=== PATIENT | female | born 1975 | race African-American/Black ===

== ENCOUNTER 2020-11-01 11:14 | Outpatient (NON) | payer OTHER, SELFPAY ==
[2020-11-02 00:20] LABS: SARS-CoV-2 RNA PCR Negative
== END 2020-11-01 11:15 ==
LOC: ANHCOVIDDT 11:15
PROVIDERS: PCP Internal Medicine; Visit Provider Clinical Nurse Specialist
DX: Z20.828 Contact with and (suspected) exposure to other viral communicable diseases (principal); R05 Cough
CPT/HCPCS: 87635; C9803; U0003

== ENCOUNTER → 2021-02-06 12:00 | Outpatient (CLI) | payer OTHER, SELFPAY ==
--- NOTE | ~2021-02-06 | MM_ITS ---
EXAMINATION: MM screening vidhya BI w mark HISTORY: Screening mammogram TECHNIQUE: Craniocaudal and mediolateral oblique 3-D tomosynthesis images were obtained and synthetic 2-D images were generated. CAD analysis was submitted and interpreted. COMPARISON: 01/15/2017, 12/08/2013 bilateral digital screening mammogram examinations BREAST PARENCHYMAL COMPOSITION: There are scattered areas of fibroglandular density. FINDINGS: There is no evidence of suspicious mass, calcification, or architectural distortion to sugg est malignancy in either breast. There has been no suspicious interval change. IMPRESSION: 1. No mammographic evidence of malignancy. 2. Recommend routine screening mammography in one year. BI-RADS Category 1: Negative Reviewed, dictated and finalized at location A. ON WORKER
== END ==
PROVIDERS: PCP Internal Medicine; Visit Provider Obstetrics & Gynecology Gynecology
DX: Z12.31 Encounter for screening mammogram for malignant neoplasm of breast (principal)
CPT/HCPCS: 77063; 77067

== ENCOUNTER 2021-02-10 12:34 | Outpatient (CLI) | payer OTHER, SELFPAY ==
[2021-02-10 13:57] LABS: HIV 1/2 Ab P24 Ag Result Negative (Negative)
[2021-02-10 14:45] LABS: Hepatitis B Surface Antigen Negative (Negative)
[2021-02-10 15:02] LABS: Hepatitis C Virus Antibody Negative (Negative)
== END 2021-02-10 12:35 | disposition home or self-care (01) ==
LOC: ANHLAB 12:36
PROVIDERS: PCP Internal Medicine; Visit Provider Plastic Surgery
DX: Z77.21 Contact with and (suspected) exposure to potentially hazardous body fluids (principal)
CPT/HCPCS: 36415; 86703; 86803; 87340; G0432

== ENCOUNTER → 2021-03-03 08:19 | Outpatient (CLI) | payer OTHER, SELFPAY ==
[2021-03-03 19:28] LABS: SARS-CoV-2 RNA PCR Negative
== END ==
PROVIDERS: PCP Internal Medicine; Visit Provider Clinical Nurse Specialist
DX: J01.00 Acute maxillary sinusitis, unspecified (principal); Z20.822 Contact with and (suspected) exposure to COVID-19
CPT/HCPCS: C9803; U0003; U0005

== ENCOUNTER 2021-03-26 15:44 | Outpatient (CLI) | payer OTHER, SELFPAY ==
--- NOTE | ~2021-03-26 | XR_ITS ---
EXAMINATION: XR finger 1st RT min 2V DATE: 03/26/2021 16:09 INDICATION: Osteoarthritis TECHNIQUE: Dorsal palmar, lateral and 2 oblique views of the right first digit were obtained COMPARISON: None FINDINGS: Alignment is normal. No fracture. Minimal osteoarthritis with slight nonuniform joint space are at th e first metacarpophalangeal joint and with tiny marginal osteophytes and relatively preserved joint s pace at the first interphalangeal joint. Soft tissues are unremarkable. IMPRESSION: 1. Minimal osteoarthritis at the right first metacarpophalangeal and first interphalangeal joints. Reviewed, dictated and finalized at location A. IMPRESSION: 1. Minimal osteoarthritis at the right first metacarpophalangeal and first inte rphalangeal joints.
== END 2021-03-26 15:45 | disposition home or self-care (01) ==
PROVIDERS: PCP Internal Medicine; Visit Provider Plastic Surgery
DX: M19.041 Primary osteoarthritis, right hand (principal)
CPT/HCPCS: 73140

== ENCOUNTER 2021-03-27 13:29 | Outpatient (CLI) | payer OTHER, SELFPAY | END 2021-03-27 13:30 | disposition home or self-care (01) | LOC: ANHCOVIDVC 13:30 | PROVIDERS: PCP Internal Medicine | DX: Z23 Encounter for immunization (principal) | CPT/HCPCS: 0001A; 91300 ==

== ENCOUNTER 2021-04-17 13:00 | Outpatient (CLI) | payer OTHER, SELFPAY | END 2021-04-17 13:01 | disposition home or self-care (01) | LOC: ANHCOVIDVC 13:01 | PROVIDERS: PCP Internal Medicine | DX: Z23 Encounter for immunization (principal) | CPT/HCPCS: 0002A; 91300 ==

== ENCOUNTER 2021-05-28 13:22 | Emergency (ER) | payer OTHER, SELFPAY ==
[2021-05-28] VITALS (12 sets, daily range): BP systolic 124–183; BP diastolic 77–133; PULSE 78–97; RESP 16–18; TEMP 37.1; O2SAT 91–100
--- NOTE | ~2021-05-28 | XR_ITS ---
EXAMINATION: XR chest 2V DATE: 05/28/2021 13:52 INDICATION: Right chest pain. TECHNIQUE: Frontal and lateral views of the chest were obtained. COMPARISON: None. FINDINGS: There is mild atelectasis in left lower lung zone. No pleural effusion or pneumothorax. The heart size is normal. Surgical clips in the right upper quadrant are likely from cholecystectomy. IMPRESSION: 1. Mild atelectasis in left lower lung zone. Reviewed, dictated and finalized at location A.
--- NOTE | 2021-05-28 13:24 | ECG_ITS ---
Measurements Intervals Hodges Rate: 96 P: 61 AR: 137 QRS: -33 QRSD: 112 T: 21 QT: 333 QTc: 421 Interpretive Statements SINUS RHYTHM LEFT AXIS DEVIATION INCOMPLETE RIGHT BUNDLE BRANCH BLOCK VOLTAGE CRITERIA FOR LVH POOR R WAVE PROGRESSION, ANTERIOR LEADS MINIMAL Q WAVES- HIGH LATERAL LEADS BORDERLINE T WAVE ABNORMALITY- ANT/INF LEADS BORDERLINE ECG Electronically Signed On 05-28-2021 13:47:32 CDT by Denzel Renee D.O.
[2021-05-28 14:01] LABS: Basophils Percent Auto 0.1 % (0.2-1.2); Hematocrit 36.8 % (37.0-47.0); Hemoglobin 12.2 g/dL (12.0-15.0); Immature Granulocyte Percent A 0.7 % (0-0.5); Lymphocytes Absolute Auto 1.19 K/mm3 (0.9-3.2); Lymphocytes Percent Auto 8.7 % (18.3-44.2); Mean Corpuscular HGB Conc 33.2 g/dl (32-36); Mean Corpuscular Volume 90.4 fl (80-100); Mean Platelet Volume 10.1 fl (7.4-10.4); Monocytes Absolute Auto 0.3 K/mm3 (0.1-0.6); Monocytes Percent Auto 2.1 % (2.6-8.5); Neutrophils Percent Auto 88.4 % (45.5-73.1); Platelet Count Result 313 k/mm3 (150-375); Red Blood Count 4.07 M/mm3 (4.2-5.4); Red Cell Distribution Width 12.6 % (11.5-14.5); White Blood Count 13.6 K/mm3 (4.5-10.0)
[2021-05-28 14:11] LABS: Anion Gap 10 mmol/L (8-16); Blood Urea Nitrogen 10 mg/dL (7-17); Calcium 9.5 mg/dL (8.4-10.2); Carbon Dioxide 18 mmol/L (22-30); Chloride 110 mmol/L (98-107); Estimated CRCL calculation 116 ml/min; Estimated Glomerular Filt Rate > 60; Glucose 124 mg/dL (65-105); Potassium 3.9 mmol/L (3.4-5.0); Sodium 138 mmol/L (137-145)
[2021-05-28 14:15] LABS: INR 0.9; Partial Thromboplastin Time 27.4 SECONDS (22.3-36.8); Prothrombin Time 12.6 Seconds (11.1-14.7)
[2021-05-28 14:23] LABS: Troponin I < 0.012 ng/mL (0.000-0.034)
[2021-05-28 15:12] LABS: Alanine Aminotransferase 20 U/L (4-35); Albumin Level 4.2 g/dL (3.5-5.1); Alkaline Phosphatase 97 U/L (38-126); Aspartate Amino Transferase 31 U/L (14-36); Bilirubin,Total 0.2 mg/dL (0.2-1.3); Lipase 116 U/L (23-300)
[2021-05-28 15:16] LABS: D Dimer 0.45 ug/mL (<0.48)
[2021-05-28] MEDS: KETOROLAC 30 MG/ML VIAL (*BKC) IV PUSH (15:35)
--- NOTE | 2021-05-28 15:41 | ED.CHESTPAIN ---
HPI - Chest Pain General Chief Complaint: Chest Pain Stated Complaint: CP Time Seen by Provider: 05/28/21 14:40 Source: RN notes reviewed History of Present Illness HPI narrative: Patient presents emergency department from home for right-sided chest pain. Patient states pain began last night pain is located on the right side of the chest and does not radiate described as sharp and stabbing. Patient states pain is worse when she bends over she denies any fevers or chills abdominal pain nausea vomiting shortness of breath or any other symptoms states she took Tylenol this morning for pain with minimal relief states she does have a history of GERD and has been taking her omeprazole Related Data Home Medications Medication Instructions Recorded Confirmed dupilumab 200 mg/1.14 mL 200 mg SUB-Q .every 2 weeks ml 11/02/19 03/03/21 subcutaneous syringe etonogestrel 0.12 mg-ethinyl 1 vag ring VAGINAL ONCE 11/02/19 03/03/21 estradiol 0.015 mg/24 hr vaginal ring montelukast 10 mg tablet 10 mg PO DAILY 11/02/19 03/03/21 albuterol sulfate 90 mcg/actuation 2 puff INHALATION Q4-6H PRN g 11/01/20 03/03/21 aerosol inhaler fluticasone furoate 200 1 inh INHALATION DAILY 11/01/20 03/03/21 mcg-vilanterol 25 mcg/dose inhalation powder metformin 500 mg tablet 500 mg PO BID tablet 11/01/20 03/03/21 omeprazole 40 mg capsule,delayed 40 mg PO DAILY 01/23/21 03/03/21 release Allergies Allergy/AdvReac Type Severity Reaction Status Date / Time No Known Allergies Allergy Unverified 10/24/18 08:19 Review of Systems Review of Systems: Narrative: Gen.: Denies fevers or chills ENT: Denies congestion Respiratory: Denies shortness of breath or cough CV: See HPI GI: Denies abdominal pain nausea, emesis or diarrhea Musculoskeletal: Denies back pain or muscle pain Neuro: Denies numbness, tingling, weakness or focal weakness Skin: Denies rash Except as documented, all other systems reviewed and negative PMFSH Past Medical History Medical History Allergies Arthritis Asthma Cervical radiculopathy Lumbar radiculopathy PCOS (polycystic ovarian syndrome) Pseudotumor both eyes Renal stone Surgical History Surgical History (Updated 11/02/19 @ 07:51 by Stefania Longoria CMA) H/O section Hx of cholecystectomy Family History Family History (Updated 11/02/19 @ 11:26 by Stefania Longoria CMA) Father Asthma Mother Heart disease Cerebrovascular accident Diabetes mellitus Bleeding disorder Social History Social History Smoking status: Never smoker Alcohol intake: current Exam Narrative: Exam Narrative: APPEARANCE: No acute distress, nontoxic, resting in bed EYES: EOMI HEENT: Normocephalic, atraumatic, OMM RESPIRATORY: No respiratory distress Clear to auscultation bilaterally with no rhonchi wheezing or rales. CARDIOVASCULAR: Regular rate and rhythm without murmurs rubs or gallops. Chest: Tender palpation over the right anterior chest wall no swelling or ecchymosis pain increased with slight motion and deep inspiration ABDOMINAL: Soft, nontender, nondistended, no rebound or guarding MUSCULOSKELETAl: Moves all extremities. No clubbing, cyanosis or edema. NEURO: Awake and alert. Following commands, speech normal, no focal deficits SKIN:: Warm, dry. No rashes lesions or abrasions PSYCHIATRIC: Normal affect/mood, Course Course Emergency Course: Patient states pain is improved at this time Discussed with patient results of workup and diagnosis. Discussed need for follow-up with primary care, proper use of medication, and reasons to return to the emergency department. Patient understands and agrees to current treatment plan Vital Signs Vital signs: Vital Signs Temperature 98.7 F 05/28/21 13:26 Pulse Rate 85 05/28/21 13:26 Respiratory Rate 16 05/28/21 13:26 Blood Pressure 145/79 H /
[2021-05-28 16:59] LABS: Troponin I < 0.012 ng/mL (0.000-0.034)
== END 2021-05-28 17:37 | disposition home or self-care (01) ==
PROVIDERS: Emergency Provider Emergency Medicine; PCP Internal Medicine
DX: R07.89 Other chest pain (principal); K21.9 Gastro-esophageal reflux disease without esophagitis; E28.2 Polycystic ovarian syndrome; M19.90 Unspecified osteoarthritis, unspecified site; J45.909 Unspecified asthma, uncomplicated; Z87.442 Personal history of urinary calculi; Z79.84 Long term (current) use of oral hypoglycemic drugs; R91.8 Other nonspecific abnormal finding of lung field; I45.10 Unspecified right bundle-branch block; R94.31 Abnormal electrocardiogram [ECG] [EKG]
CPT/HCPCS: 36415; 71046; 80048; 80076; 81025; 83690; 84484; 85025; 85380; 85610; 85730; 93005; 96374; 99284; A9270; J1885

== ENCOUNTER → 2021-06-24 06:40 | Outpatient (CLI) | payer OTHER, SELFPAY ==
[2021-06-24 20:36] LABS: SARS-CoV-2 RNA PCR Negative
== END ==
PROVIDERS: PCP Internal Medicine; Visit Provider Clinical Nurse Specialist
DX: R68.89 Other general symptoms and signs (principal); Z20.822 Contact with and (suspected) exposure to COVID-19
CPT/HCPCS: C9803; U0003; U0005

== ENCOUNTER → 2021-07-24 11:35 | Outpatient (CLI) | payer OTHER, SELFPAY ==
--- NOTE | ~2021-07-24 | US_ITS ---
US pelvic complete w TV DATE: 07/24/2021 12:04 INDICATION: Pelvic pain TECHNIQUE: Real-time imaging via transabdominal and transvaginal approaches COMPARISON: 12/08/2013 pelvic ultrasound FINDINGS: The uterus measures 9.6 cm height, 4.7 cm anteroposterior and 5.4 cm transverse dimension. There is inhomogeneous echotexture with suggestion of uterine fibroids measuring up to 1.1 and 2.7 cm . Nabothian cysts of the uterine cervix. Right ovary 2.3 x 1.1 x 1.6 cm, with vascular flow. Left ovary 2.1 x 1.6 x 2.3 cm, with vascular flow. No abnormal free fluid collection is detected. IMPRESSION: Inhomogeneous echotexture suggesting uterine fibroids Reviewed, dictated and finalized at Location A. Reviewed, dictated and finalized at location A.
== END ==
PROVIDERS: PCP Clinical Nurse Specialist; Visit Provider Nurse Practitioner
DX: R10.2 Pelvic and perineal pain (principal)
CPT/HCPCS: 76830; 76856

== ENCOUNTER 2023-11-11 17:23 | Emergency (ER) | payer OTHER, SELFPAY ==
--- NOTE | ~2023-11-11 | CT_ITS ---
EXAMINATION: CT abdomen pelvis w con DATE: 11/11/2023 20:32 INDICATION: Right upper quadrant abdominal pain TECHNIQUE: Computed tomography (CT) of the abdomen and pelvis was performed with 100 mL Omnipaque-350 intravenous contrast. Automated exposure control and iterative reconstruction technique were employe d. The dose-length product was 1337.41 mGy-cm. COMPARISON: None FINDINGS: Discoid atelectasis in the lingula. Heart size is normal. No pericardial or pleural effusion. Focal h epatic steatosis at the ligamentum teres. Cholecystectomy clips the gallbladder fossa. Liver, spleen, pancreas, bilateral adrenal glands and right kidney are normal. 3 mm nonobstructing stone at a lower pole calyx of the left kidney. Normal appendix. Bowels are unremarkable with no wall thickening or o bstruction. Dystrophic calcification at the fundus of the anteverted uterus. 1.7 cm identified fibroi d at the left side of the uterine fundus. Nabothian cysts at the cervix. Decompressed bladder and lat eral adnexa are unremarkable. No free intraperitoneal gas or fluid. No pathologically enlarged abdomi nal or pelvic lymphadenopathy. Moderate lumbar spondylosis. IMPRESSION: 1. No acute intra-abdominal/pelvic process. 2. Nonobstructing 3 mm left renal stone. 3. Fibroid uterus. Reviewed, dictated and finalized at location A. TRIMMER
[2023-11-11 17:25] VITALS: BP 143/86; PULSE 82; RESP 16; TEMP 36.5; O2SAT 100
[2023-11-11 18:04] LABS: Basophils Percent Auto 0.5 % (0.2-1.2); Eosinophils Absolute Auto 0.2 K/mm3 (0-0.3); Eosinophils Percent Auto 2.3 % (0-4.4); Hematocrit 36.1 % (37.0-47.0); Immature Granulocyte Absolute 0.03 K/mm3 (0.00-0.031); Immature Granulocyte Percent A 0.5 % (0-0.5); Lymphocytes Absolute Auto 2.37 K/mm3 (0.9-3.2); Lymphocytes Percent Auto 36.7 % (18.3-44.2); Mean Corpuscular HGB Conc 33.2 g/dl (32-36); Mean Corpuscular Hemoglobin 30.5 pg (26-34); Mean Corpuscular Volume 91.6 fl (80-100); Monocytes Absolute Auto 0.4 K/mm3 (0.1-0.6); Monocytes Percent Auto 6.5 % (2.6-8.5); Neutrophils Absolute Auto 3.5 K/mm3 (1.3-6.7); Neutrophils Percent Auto 53.5 % (45.5-73.1); Platelet Count Result 311 k/mm3 (150-375); Red Blood Count 3.94 M/mm3 (4.2-5.4); Red Cell Distribution Width 12.1 % (11.5-14.5); White Blood Count 6.5 K/mm3 (4.5-10.0)
[2023-11-11 18:05] LABS: Appearance Urine Clear (Clear); Bacteria Urine None Seen /hpf; Bilirubin Urine Negative (Negative); Blood Urine Trace (Negative); Color Urine Yellow (Yellow); Glucose Urine UA Negative (Negative); Ketones Urine Negative (Negative); Leukocyte Esterase Ur Negative LEU/UL (Negative); Nitrate Urine Negative (Negative); Non Pathogenic Casts 0-2; Protein Urine Negative (Negative); RBC Urine 0-2 /hpf (0-2); Specific Grav Ur 1.028 (1.001-1.035); Squamous Epithelial Cell Urine Occasional /hpf (Few); Urobilinogen Urine 0.2 mg/dL (<2.0); WBC Urine 0-5 /hpf; pH Urine 5.5 (5.0-9.0)
[2023-11-11 18:08] LABS: Add Urine Microscopic? YES
[2023-11-11 18:10] LABS: Alanine Aminotransferase 13 U/L (6-35); Albumin Level 3.8 g/dL (3.5-5.1); Alkaline Phosphatase 77 U/L (38-126); Anion Gap 7 mmol/L (8-16); Aspartate Amino Transferase 20 U/L (14-36); Bilirubin,Total 0.3 mg/dL (0.2-1.3); Blood Urea Nitrogen 13 mg/dL (7-17); Calcium 8.7 mg/dL (8.4-10.2); Carbon Dioxide 24 mmol/L (22-30); Chloride 109 mmol/L (98-107); Estimated CRCL calculation 90 ml/min; Estimated Glomerular Filt Rate > 60; Glucose 107 mg/dL (65-110); Lipase 130 U/L (23-300); Potassium 3.8 mmol/L (3.4-5.0); Sodium 140 mmol/L (137-145)
--- NOTE | 2023-11-11 18:44 | ED.FEMALEGU ---
HPI - Female Genitourinary General Chief complaint: Vaginal Bleeding Stated complaint: Right sd pain with vaginal bleeding Time Seen by Provider: 11/11/23 18:43 History of Present Illness HPI Narrative: Patient is a 47-year-old female with history of fibroids here with vaginal bleeding and abdominal pain. She states that over the last few days she has been having some right lower quadrant abdominal pain which seems to radiate up into her right flank and down into her groin. She notes it is sharp and cramping. She notes normal bowel movements and no urinary symptoms. She did have similar symptoms in the past when she had a urinary tract infection. She does note some subjective fever along with chills at home. She additionally notes over the same period of time she has had some intermittent vaginal spotting. She notes that in the morning it is spotting and seems to increase strength throughout the day. She was moved a couple of pads throughout the day. She does note some small clots. It is dark brown in color. Last menstrual period was about a week ago and typically last 5 days, it was a normal period for her. She has been diagnosed with fibrioids in the past on an US that was performed by her OBGYN outpatient. Related Data Home Medications Medication Instructions Recorded Confirmed dupilumab 200 mg/1.14 mL 200 mg subcut .every 2 weeks 11/02/19 06/23/21 subcutaneous syringe (Dupixent) etonogestrel 0.12 mg-ethinyl 1 vag ring vaginal ONCE 11/02/19 06/23/21 estradiol 0.015 mg/24 hr vaginal ring (NuvaRing) montelukast 10 mg tablet 10 mg PO DAILY 11/02/19 06/23/21 albuterol sulfate 90 mcg/actuation 2 puff inhalation Q4-6H PRN 11/01/20 06/23/21 aerosol inhaler (ProAir HFA) fluticasone furoate 200 1 inh inhalation DAILY 11/01/20 06/23/21 mcg-vilanterol 25 mcg/dose inhalation powder (Breo Ellipta) metformin 500 mg tablet 500 mg PO BID 11/01/20 06/23/21 omeprazole 40 mg capsule,delayed 40 mg PO DAILY 01/23/21 06/23/21 release Allergies Allergy/AdvReac Type Severity Reaction Status Date / Time No Known Allergies Allergy Verified 11/11/23 17:29 Review of Systems Review of Systems: All systems reviewed & are unremarkable except as noted in HPI and below PMFSH Past Medical History Medical History Allergies Arthritis Asthma Cervical radiculopathy Lumbar radiculopathy PCOS (polycystic ovarian syndrome) Pseudotumor both eyes Renal stone Surgical History Surgical History H/O section Hx of cholecystectomy Family History Family History Father Asthma Mother Heart disease Cerebrovascular accident Diabetes mellitus Bleeding disorder Social History Social History Smoking status: Never smoker Alcohol intake: current Alcohol use details: Pt drinks rarely. Exam Narrative: GENERAL: Well-appearing, well-nourished, and in no acute distress. HEAD: Normocephalic, atraumatic. EYES: PERRLA and EOMI. ENT: Nares clear. Mucous membranes moist. NECK: Supple. CHEST: Clear to auscultation. No respiratory distress. HEART: Regular rate and rhythm. Normal peripheral pulses. ABDOMEN: Soft, suprapubic and RLQ tenderness. +CVA tenderness on the right side. EXTREMITIES: Normal range of motion. No edema. SKIN: Warm, dry, no rash. NEURO: No focal deficits. Alert and oriented x3. PSYCH: Normal mood and affect. Course Course Emergency Course: Chart review performed. Patient here with vaginal bleeding and lower abdominal pain. She has some nausea with pain. LMP was 10/31/23. Bedside preg negative. CBC shows stable Hgb at 12.0. Transvaginal US on 07/24/21 shows uterine fibroids. Patient seen evaluated, nontoxic appearing. She is significantly tender in the right lower qu
[2023-11-11 21:04] VITALS: BP 138/78; PULSE 79; RESP 18; O2SAT 98
[2023-11-11 21:15] VITALS: O2SAT 100
[2023-11-11 21:40] VITALS: BP 132/76; PULSE 79; RESP 16; O2SAT 99
== END 2023-11-11 21:40 | disposition home or self-care (01) ==
PROVIDERS: Emergency Medicine; Emergency Provider Student in an Organized Health Care Education/Training Program
DX: N93.8 Other specified abnormal uterine and vaginal bleeding (principal); D25.9 Leiomyoma of uterus, unspecified; R10.31 Right lower quadrant pain; J45.909 Unspecified asthma, uncomplicated; E28.2 Polycystic ovarian syndrome; M19.90 Unspecified osteoarthritis, unspecified site; Z87.442 Personal history of urinary calculi; Z90.49 Acquired absence of other specified parts of digestive tract; Z79.84 Long term (current) use of oral hypoglycemic drugs; N20.0 Calculus of kidney
CPT/HCPCS: 36415; 74177; 80053; 81001; 81025; 83690; 85025; 99284; Q9967

== ENCOUNTER 2025-08-28 13:10 | Emergency (ER) | payer OTHER, SELFPAY ==
--- NOTE | ~2025-08-28 | XR_ITS ---
EXAMINATION: XR foot LT min 3V, 08/28/2025 13:34 CDT HISTORY: LT 5th digit pain, lat foot after stubbing foot 2 weeks ago COMPARISON: No comparisons available. Findings: Fixation of the fifth metatarsal, no acute fracture identified No significant degenerative changes. Soft tissues unremarkable. Impression: No acute fracture or malalignment. Reviewed, dictated and finalized at location P. Impression: No acute fracture or malalignment.
--- NOTE | ~2025-08-28 | XR_ITS ---
EXAMINATION: XR ankle LT min 3V, 08/28/2025 13:34 CDT HISTORY: LT lat ankle pain after stubbing toe 2 weeks ago COMPARISON: No comparisons available. Findings: Remote corticated fracture of the medial malleolus. No acute fracture. Moderate degenerative changes. Large calcaneal spur Soft tissues unremarkable. Impression: No acute fracture or malalignment. Reviewed, dictated and finalized at location P. Impression: No acute fracture or malalignment.
--- NOTE | 2025-08-28 13:14 | ED_ITS ---
HPI - Fall General Chief Complaint: Extremity Injury, Lower Stated Complaint: FALL Time Seen by Provider: 08/28/25 13:13 Source: patient Mode of arrival: ambulatory Limitations: no limitations History of Present Illness HPI Narrative: Patient is a 49-year-old female that presents with left foot pain after stubbing foot on her mother's walker. Initial injury was a week ago but has worsened in pain. Patient has history of surgery and fracture in left foot/ankle. Patient able to ambulate unassisted. Related Data Home Medications ?Medication ?Instructions ?Recorded ?Confirmed ?Last Taken ?Type dupilumab 200 mg/1.14 mL 200 mg subcut .every 2 weeks 11/02/19 06/23/21 Unknown History subcutaneous syringe (Dupixent) etonogestrel 0.12 mg-ethinyl 1 vag ring vaginal ONCE 1 01/03/19 06/23/21 Unknown History estradiol 0.015 mg/24 hr vaginal ring (NuvaRing) montelukast 10 mg tablet 10 mg PO DAILY 11/02/1905/30 Unknown History albuterol sulfate 90 mcg/actuation 2 puff inhalation Q 4-6H PRN 11/01/20 06/23/21 Unknown History aerosol inhaler (ProAir HFA) fluticasone furoate 200 1 inh inhalation DAILY 11/0106/23/21 Unknown History mcg-vilanterol 25 mcg/dose inhalation powder (Breo Ellipta) metformin 500 mg tablet 500 mg PO BID 11/01/2006/23 Unknown History omeprazole 40 mg capsule,delayed 40 mg PO DAILY 06/23/21 Unknown History release Allergies Allergy/AdvReac Type Severity Reaction Status Date / Time No Known Allergies Allergy Verified 08/28/25 13:13 Review of Systems Review of Systems: All systems reviewed & are unremarkable except as noted in HPI and below Constitutional: Constitutional: Denies body ache(s), Denies chills, Denies fatigue, Denies fever(s), Denies headache(s), Denies malaise and Denies weakness Eyes: Eyes: Denies blurry vision, Denies irritation and Denies loss of vision ENT: Denies otalgia, Denies headache(s), Denies nasal discharge, Denies sinus pain and Denies sore throat Cardiovascular: Cardiovascular: Denies chest pain, Denies irregular heart rhythm and Denies dyspnea Respiratory: Respiratory: Denies dyspnea Gastrointestinal: Gastrointestinal: Denies abdominal pain, Denies melena, Denies hematochezia, Denies diarrhea, Denies nausea and Denies vomiting Musculoskeletal: Musculoskeletal: Denies back pain, Denies myalgias and Reports arthralgias Integumentary/Breasts: Skin/Breast: Denies pruritus and Denies rash Neurologic: Denies headache(s), Denies loss of vision and Denies weakness Psychiatric: Psychiatric: Reports no additional psychiatric complaints Endocrine: Endocrine: Denies fatigue PMFSH Past Medical History Medical History Renal stone Allergies Pseudotumor both eyes Arthritis Asthma PCOS (polycystic ovarian syndrome) Cervical radiculopathy Lumbar radiculopathy Surgical History Surgical History H/O section Hx of cholecystectomy Family History Family History Father Asthma Mother Heart disease Cerebrovascular accident Diabetes mellitus Bleeding disorder Social History Social History Smoking status: Never smoker Alcohol intake: current Alcohol use details: Pt drinks rarely. Comments At time of signature, agree with nursing past medical, surgical, social and family history. There is no relevant family history pertinent to the presenting complaint. Exam Const: General: cooperative, healthy appearing, comfortable, no acute distress and well nourished Nutritional Appearance: well nourished Orientation/consciousness: patient oriented x3 Limitations: no limitations HENMT: Head: normal to inspection, normocephalic and atraumatic Ears: hearing grossly normal bilaterally and external ears normal Face/Nose/Sinus: Normal external nose present, normal facial exam and face symmetric Face and sinus: normal facial exam and face symmetric Mouth: Yes lip normal Eyes: General: appearance normal, both eyes and all related structures Alignment and Position: alignment normal and position normal Periorbital: periorbital findings normal Eyelids: eyelids normal Pupils: Equal, round and reactive pupils present EOM: EOMs intact bilaterally Neck: Neck: normal visual inspection, full ROM and supple Chest: Chest palpation & inspection: normal inspection of the chest Resp: Effort & Inspection: normal respiratory effort and able to speak in co mplete sentences Auscultation: clear to auscultation bilaterally Cardio: Rate: regular rate Rhythm: regular rhythm Heart sounds: S1 normal heart sound present and S2 normal heart sound present GI: Inspection: normal to inspection Skin: General skin exam: normal color and no rashes or lesions noted Neuro: General: patient oriented x3 and moves all extremities Cranial nerves: Yes Equal, round and reactive pupils present Speech: normal speech Gait exam (Neuro): Normal gait present Extrem: General: normal to inspection, full ROM and no edema Left lower extremity: lower leg Details: normal to inspection; no tenderness, ankle Details: normal to inspection, tenderness Location: of the medial malleolus and normal ROM; no swelling, no warmth, no ecchymosis and achilles tendon exam normal and foot Details: normal capillary refill, tenderness (entire foot), toes with normal ROM, ecchymosis dorsal 4th toe single and vascular exam Details: dorsalis pedis pulse present and normal capillary refill; no unusual warmth Psych: Appearance: grossly normal and well kempt Mental Status: mental status grossly normal Speech and movement: Normal speech and movement present Affect: normal affect Attitude: cooperative Thought process: Normal thought process present Course Course Emergency Course: Patient is aware of diagnosis, understands and agrees to treatment plan. Anticipatory guidance given. Patient agrees to follow-up as directed and is aware of reasons to seek care at the emergency department. Portions of this record may have been created with voice recognition software Level of Care: Express Care Visit Vital Signs Vital signs: Reviewed MDM - Fall MDM Narrative Medical decision making narrative: Dewayne wrap applied to left foot Patient is able to bear weight and ambulate without pain. No surface of trauma or obvious effusion. No overlying erythema or warmth. The L ankle is without obvious asymmetry or deformity when comparing to the R. Patient has no pain with dorsiflexion, plantar flexion, eversion, and inversion. Tenderness to medial ankle on palpation. Motor and neurovascular status intact. Pt well hydrated appearing, in no respiratory distress, hemodynamically stable. Recommend supportive care. The patient is stable at time of discharge the clinical impression was discussed and the patient was given the opportunity to ask questions, which were addressed as completely as possible given the information available at present. Anticipatory guidance and return to care precautions were discussed and the importance of primary care follow-up was stressed and encouraged. The patient voiced understanding of the plan, indications to return, and the need for follow-up. Exam findings show no acute concerns or changes Patient is appropriate for outpatient treatment and follow-up. Differential Diagnosis Differential diagnosis: Likely other (To sprain, toe fracture, foot sprain, foot fracture, ankle sprain, ankle fracture) Medical Records Attestation: I reviewed the patient's medical records. Imaging Data Radiologist's impression: EXAMINATION: XR foot LT min 3V, 08/28/2025 13:34 CDT HISTORY: LT 5th digit pain, lat foot after stubbing foot 2 weeks ago COMPARISON: No comparisons available. Findings: Fixation of the fifth metatarsal, no acute fracture identified No significant degenerative changes. Soft tissues unremarkable. Impression: No acute fracture or malalignment. Reviewed, dictated and finalized at location P. EXAMINATION: XR ankle LT min 3V, 08/28/2025 13:34 CDT HISTORY: LT lat ankle pain after stubbing toe 2 weeks ago COMPARISON: No comparisons available. Findings: Remote corticated fracture of the medial malleolus. No acute fracture. Moderate degenerative changes. Large calcaneal spur Soft tissues unremarkable. Impression: No acute fracture or malalignment. Reviewed, dictated and finalized at location P. Discharge Plan Discharge Clinical Impression: Strain of foot, left Patient Disposition: Home Condition: Stable Instructions: Foot Sprain (ED) Additional Instructions: Xray showed no fracture. Minimize activities that aggravate the condition The RICE protocol. Follow the RICE protocol as soon as possible after your injury: Rest your foot by not walking on it. Ice should be immediately applied to keep the swelling down. It can be used for 20 to 30 minutes, three or four times daily. Do not apply ice directly to your skin. Compression dressings, bandages or dewayne-wraps will immobilize and support your injured foot. Elevate your foot above the level of your heart as often as possible during the first 48 hours. Medication: Nonsteroidal anti-inflammatory drugs (NSAIDs) such as ibuprofen and naproxen can help control pain and swelling. Because they improve function by both reducing swelling and controlling pain, they are a better option for mild sprains than narcotic pain medicines. Please schedule a follow-up visit with your personal physician for further evaluation and treatment within 1week OR If your symptoms persist, change or worsen significantly before you can contact your personal physician then please, without delay, go to the emergency department for further evaluation. Patient Language: Occitan Prescriptions: No Action Dupixent Syringe 200 mg/1.14 mL syringe 200 mg SUB-Q .every 2 weeks montelukast 10 mg tablet 10 mg PO DAILY NuvaRing 0.12-0.015 mg/24 hr ring 1 vag ring VAGINAL ONCE metformin 500 mg tablet 500 mg PO BID albuterol sulfate [ProAir HFA] 90 mcg/actuation HFA aerosol inhaler 2 puff inhalation Q4-6H PRN Breo Ellipta 200-25 mcg/dose blister with device 1 inh inhalation DAILY omeprazole 40 mg capsule,delayed release(DR/EC) 40 mg PO DAILY methylprednisolone [Medrol (Vishal)] 4 mg tablets,dose pack See Rx Instructions PO PER PKG DIR Qty: 21 0RF Rx Instructions: PO PER PKG DIR tramadol 50 mg tablet 50 mg PO Q6H PRN (Reason: pain) Qty: 10 0RF ibuprofen [IBU] 600 mg tablet 600 mg PO Q6H PRN (Reason: pain) Qty: 20 0RF albuterol sulfate 2.5 mg /3 mL (0.083 %) solution for nebulization See Rx Instructions INHALATION Q4-6H PRN (Reason: shortness of breath or wheezing) Qty: 0 0RF Rx Instructions: 0.83ml inhalation every 4 - 6 hours PRN; Please dispense enough for 1 month supply spironolactone 25 mg tablet 25 mg PO DAILY Qty: 90 0RF methocarbamol 500 mg tablet 500 mg PO TID PRN (Reason: muscle pain) Qty: 60 1RF methocarbamol 500 mg tablet 500 mg PO TID PRN (Reason: muscle spasm) Qty: 30 0RF diclofenac sodium 1 % gel 2 g TOPICAL BID Qty: 100 1RF Follow-up/Referrals: Susan Smith DO [Physician, Family Practice] - 3 Days Referral Note: Establish care Stand Alone Forms: Work/School Release IP Time of Disposition: 14:02
[2025-08-28 13:22] VITALS: BP 126/83; PULSE 97; RESP 18; TEMP 36.7; O2SAT 99
== END 2025-08-28 14:11 | disposition home or self-care (01) ==
PROVIDERS: Emergency Provider Nurse Practitioner Family
DX: S96.912A Strain of unspecified muscle and tendon at ankle and foot level, left foot, initial encounter (principal); W22.8XXA Striking against or struck by other objects, initial encounter; J45.909 Unspecified asthma, uncomplicated; E28.2 Polycystic ovarian syndrome; M19.90 Unspecified osteoarthritis, unspecified site
CPT/HCPCS: 73610; 73630; 99213; G0463